=== PATIENT | male | born 1985 | race Caucasian/White ===

== ENCOUNTER 2023-03-20 16:05 | Outpatient (CLI) | payer OTHER, SELFPAY ==
[2023-03-20 16:11] LABS: Bacteria Urine Few
[2023-03-20 16:12] LABS: Mucus Urine Few
[2023-03-20 23:41] LABS: Chlamydia DNA Amplified* NOT DETECTED (No Detected); GC DNA Amplified* NOT DETECTED (No Detected)
== END 2023-03-20 16:06 | disposition home or self-care (01) ==
PROVIDERS: Visit Provider Nurse Practitioner Family
DX: R30.0 Dysuria (principal)
CPT/HCPCS: 81015; 87086; 87491; 87591

== ENCOUNTER 2023-03-30 11:45 | Outpatient (CLI) | payer OTHER, SELFPAY | END 2023-03-30 11:46 | disposition home or self-care (01) | LOC: NFLDREF 03-31 06:13 | PROVIDERS: Visit Provider Nurse Practitioner Family | DX: R35.0 Frequency of micturition (principal); N39.0 Urinary tract infection, site not specified | CPT/HCPCS: 87086 ==

== ENCOUNTER 2024-11-26 13:59 | Outpatient (CLI) | payer OTHER, SELFPAY | END 2024-11-26 14:00 | disposition home or self-care (01) | LOC: NFLDUCREF 14:01 | PROVIDERS: PCP Family Medicine | DX: R10.11 Right upper quadrant pain (principal) | CPT/HCPCS: 80053 ==

== ENCOUNTER 2025-01-16 15:47 | Emergency (ER) | payer OTHER, SELFPAY ==
[2025-01-16 15:56] VITALS: BP 166/84; PULSE 78; RESP 20; TEMP 36.7; O2SAT 99; BMI 32.5
--- NOTE | 2025-01-16 16:09 | CRLHL7_ITS ---
For Patients: As a result of the Century Cures Act, medical imaging exams and procedure reports are released immediately into your electronic medical record. You may view this report before your referring provider. If you have questions, please contact your health care provider. INDICATION: Right upper quadrant abdomen pain. TECHNIQUE: Ultrasound abdomen limited. Sonographic images of the right upper quadrant were obtained using thrasher-scale and color Doppler images. COMPARISON: None. FINDINGS: Liver: Increased hepatic echogenicity. No suspicious masses. No intrahepatic biliary dilatation. Gallbladder: No stones or sludge. Normal wall thickness. No pericholecystic fluid. Negative sonographic Su`s sign. Common bile duct: 5 mm. Pancreas: Obscured. Right kidney: Normal in size. Normal echotexture and cortex. No suspicious masses, stones, or hydronephrosis. Vasculature: Obscured. IMPRESSION: No cholelithiasis, cholecystitis, or biliary obstruction. Hepatic steatosis. Dictated by Faustino Collier MD @ 01/16/2025 6:05:37 PM (Electronically Signed)
--- NOTE | 2025-01-16 16:10 | ED_ITS ---
HPI - Chest Pain General Chief Complaint: Chest Pain Stated Complaint: Sharp Chest pains Time Seen by Provider: 01/16/25 15:47 History of Present Illness HPI narrative: Patient is a 39-year-old gentleman who over the last several months has had intermittent pain in his right upper quadrant. He has seen his primary doctor as well as urgent care and he was told to follow a low-fat diet. Patient has had no further workup including no labs or ultrasound. Patient has no overt chest pain shortness a breath orthopnea no nausea no vomiting no changes bowel or bladder. He has had no symptoms and awoken him at night. Patient is otherwise in his usual state of health. Pain is dull and localized to the right upper quadrant. Related Data Home Medications ?Medication ?Instructions ?Recorded ?Confirmed No Known Home Medications 11/26/2404/04 Allergies Allergy/AdvReac Type Severity Reaction Status Date / Time No Known Drug Allergies Allergy Verified 01/16/25 15:55 Review of Systems Status of ROS Reports: 10 or more systems reviewed and unremarkable except as noted in History and below [facility] Medical History Urinary tract infection ?N39.0 - Urinary tract infection, site not specified (ICD-10) Prostatitis ?N41.9 - Inflammatory disease of prostate, unspecified (ICD-10) Social History What is your current living situation?: I presently have a place to live Problems where you live: no known problems In the past 12 months, utilities in danger of being shut off: no In past 12 months, lack of transportation kept you from medical appts, meetings, work, or getting things needed for daily living: no In the past 12 mos, have been you worried that your food would run out before you had money to buy more?: never true In the past 12 mos, the food you bought just didn't last and you didn't have money to buy more?: never true Smoking Status: Never smoker Do you use any of these nicotine containing products: None How often do you have a drink containing alcohol: never AUDIT-C Alcohol total score: 0 Non-prescribed substance use: denies use How often does anyone, including family, friends and others, physically hurt you : never How often does anyone, including family, friends and others, insult or talk down to you: never How often does anyone, including family, friends and others, threaten you with harm: never How often does anyone, including family, friends and others, scream or curse at you: never Exam Narrative Exam Narrative: EXAM GENERAL: Patient appears comfortable and well. EYES: No scleral icterus. LYMPH: No supraclavicular or cervical lymphadenopathy. SKIN: Visible skin seen during exam normal or with benign process only. EXT: No dependent lower extremity pedal edema. HEART: Regular rate and rhythm with no murmurs, rubs, or gallops. LUNGS: Clear to auscultation bilaterally with no crackles or wheezes. ABD: Soft, non tender, non distended. PSYCH: Good eye contact, speech is not pressured. Const Vital Signs, click to edit/add: Vital Signs - 24 hr 01/16/25 15:56 Temperature 98.1 F Pulse Rate [Pulse Oximeter] 78 Respiratory Rate 20 Blood Pressure [Right Upper Arm] 166/84 H Pulse Oximetry 99 Oxygen Delivery Method Room Air Course Course ED Course: Patient seen examined. Ultrasound of the right upper quadrant CBC CMP lipase pending. Vital Signs Vital signs: Initial Vital Signs Temperature 98.1 F 01/16/25 15:56 Temperature Source Temporal Artery Scan 01/16/25 15:56 Pulse Rate 78 01/16/25 15:56 Respiratory Rate 20 01/16/25 15:56 Blood Pressure 166/84 H 01/16/25 15:56 Blood Pressure Mean 111 H 01/16/25 15:56 Pulse Oximetry 99 01/16/25 15:56 Oxygen Delivery Method Room Air 01/16/25 15:56 Vital Signs Temperature 98.1 F 01/16/25 15:56 Pulse Rate 78 01/16/25 15:56 Respiratory Rate 20 01/16/25 15:56 Blood Pressure 166/84 H 01/16/25 15:56 Pulse Oximetry 99 01/16/25 15:56 Oxygen Delivery Method Room Air 01/16/25 15:56 Temperature 98.1 F 01/16/25 15:56 Pulse Rate 78 01/16/25 15:56 Respiratory Rate 20 01/16/25 15:56 Blood Pressure 166/84 H 01/16/25 15:56 Pulse Oximetry 99 01/16/25 15:56 Oxygen Delivery Method Room Air 01/16/25 15:56 MDM - Chest Pain MDM Narrative Medical decision making narrative: PATIENT PRESENTS WITH RIGHT UPPER QUADRANT PAIN. EKG IS UNREMARKABLE. LIVER FUNCTION TESTS INCLUDING BILIRUBIN ARE NORMAL. ULTRASOUND GALLBLADDER IS UNREMARKABLE. AT THIS POINT PATIENT IS ASYMPTOMATIC. I DO THINK HE NEEDS FOLLOW-UP FOR HIDA SCAN WHICH CHECKING BE SCHEDULED THROUGH HIS OUTPATIENT CLINIC. PATIENT IS SATISFIED WITH THESE RECOMMENDATIONS WILL BE IN FOLLOW-UP WITH HIS PRIMARY DOCTOR. Lab Data Labs: Lab Results 01/16/25 Range/Units 16:17 Sodium 140 (135-149) mmol/L Potassium 4.6 (3.6-5.1) mmol/L Chloride 104 (96-114) mmol/L Carbon Dioxide 28 (20-32) mmol/L Anion Gap 8 (7-15) mEq/L BUN 11 (5-24) mg/dL Creatinine 1.0 (0.5-1.5) mg/dL Estimated Creat Clear 107.72 Estimated GFR 99 ml/min Glucose 104 (60-115) mg/dL Calcium 9.7 (8.4-10.6) mg/dL Total Bilirubin 0.6 (0.1-1.5) mg/dL AST 33 (12-35) U/L ALT 31 (4-50) U/L Alkaline Phosphatase 53 (40-150) U/L Troponin I < 0.01 (0.01-0.04) ng/mL Total Protein 8.0 (6.0-8.3) g/dL Albumin 4.7 (3.3-5.0) g/dL Lipase 131 (23-300) U/L Discharge Plan Discharge Clinical Impression: Right upper quadrant pain Patient Disposition: Home, Self-Care Condition: Stable Instructions: Abdominal Pain (ED) Additional Instructions: Continue current diet and activity Follow-up with your doctor to schedule HIDA scan Return if symptoms worsen. Activity Level: No Restrictions Discharge Diet: Regular Prescriptions: No Action No Known Home Medications Follow Up/Referrals: Kofi Beltran MD [Staff Physician, Family Practice] Stand Alone Forms: Personal On Demand Info Instructions
[2025-01-16 16:37] LABS: Albumin* 4.7 g/dL (3.3-5.0); Chloride* 104 mmol/L (96-114); Potassium* 4.6 mmol/L (3.6-5.1); Sodium* 140 mmol/L (135-149)
[2025-01-16 16:40] LABS: Alanine Aminotransferase* 31 U/L (4-50); Alkaline Phosphatase* 53 U/L (40-150); Anion Gap 8 mEq/L (7-15); Aspartate Amino Transferase* 33 U/L (12-35); Bilirubin Total* 0.6 mg/dL (0.1-1.5); Blood Urea Nitrogen* 11 mg/dL (5-24); Carbon Dioxide* 28 mmol/L (20-32); Est. Creatinine Clearance* 107.72; Estimated Glomerular Filt Rate 99 ml/min; Lipase* 131 U/L (23-300)
[2025-01-16 16:41] LABS: Calcium* 9.7 mg/dL (8.4-10.6); Glucose* 104 mg/dL (60-115)
[2025-01-16 16:52] LABS: Troponin I* < 0.01 ng/mL (0.01-0.04)
[2025-01-16 17:50] LABS: Basophils Absolute Auto 0.06 K/uL (0.00-0.30); Basophils Percent Auto 0.9 % (0.0-3.0); Eosinophils Absolute Auto 0.31 K/uL (0.00-0.50); Eosinophils Percent Auto 4.6 % (0.0-7.0); Hemoglobin* 14.9 gm/dL (13.5-17.5); Immature Granulocytes Abs Auto 0.01 K/uL (0.00-0.30); Immature Granulocytes Pct Auto 0.1 %; Lymphocytes Absolute Auto 2.28 K/uL (0.90-2.90); Lymphocytes Percent Auto 34.1 % (20-44); Mean Corpuscular HGB Conc 34 gm/dL (32-36); Mean Corpuscular Hemoglobin 31 pg (26-34); Mean Corpuscular Volume 93 fL (80-100); Monocytes Percent Auto 14.2 % (0.0-11.0); Neutrophils Absolute Auto 3.08 K/uL (1.7-7.0); Neutrophils Percent Auto 46.1 % (42.0-72.0); Platelet Count* 248 K/uL (140-440); RDW Coefficient of Variation % 11.9 % (11.5-15.5); Red Blood Count 4.75 m/uL (4.30-5.90); White Blood Count* 6.69 K/uL (4.50-11.00)
[2025-01-16 17:52] LABS: Slide Review Reflex No
[2025-01-16 17:59] VITALS: BP 124/80; PULSE 64; RESP 18; TEMP 36.6; O2SAT 98
== END 2025-01-16 18:03 | disposition home or self-care (01) ==
PROVIDERS: Emergency Provider Internal Medicine; PCP Family Medicine
DX: R10.11 Right upper quadrant pain (principal)
CPT/HCPCS: 36415; 76705; 80053; 83690; 84484; 85025; 93005; 99283; 99284